=== PATIENT | female | born 1960 | race Caucasian/White ===

== ENCOUNTER 2017-01-16 13:26 | Emergency (ER) | payer SELFPAY ==
[~2017-01-16] VITALS: Ht 165.1 cm; Wt 57.2 kg
[2017-01-16 15:48] LABS: EOSINOPHIL (%) 1.3 % (0-5); EOSINOPHIL COUNT 0.1 K/uL (0-0.3); HEMATOCRIT 41.4 % (36.0-46.0); IMMATURE GRANULOCYTE (%) 0.4 % (0.0-0.7); LYMPHOCYTE COUNT 1.9 K/uL (1.0-2.8); MCH 31.5 PG (29.0-34.0); MCHC 33.6 G/DL (30.0-36.0); MCV 93.9 FL (83-99); MEAN PLAT.VOLUME 10.4 uM^3 (9.5-12.4); MONOCYTE (%) 7.2 % (3-12); MONOCYTE COUNT 0.4 K/uL (0-0.8); NEUTROPHIL (%) 55.2 % (45-76); PLATELET COUNT 194 K/uL (156-360); RBC DIS.WIDTH-CV 12.2 % (11.8-14.6); RBC DIS.WIDTH-SD 42.7 % (39-53); RED BLOOD COUNT 4.41 M/uL (3.80-5.20); WHITE BLOOD COUNT 5.4 K/uL (4.1-10.2)
[2017-01-16 15:56] LABS: CHLORIDE 106 mEq/L (99-109); POTASSIUM 4.4 mEq/L (3.7-5.4); SODIUM 139 mEq/L (136-147)
[2017-01-16 15:57] LABS: ADD MIUA? YES; BILIRUBIN NEGATIVE; BLOOD MODERATE; COLOR STRAW ((YELLOW)); GLUCOSE (STRIP) NEGATIVE; KETONES NEGATIVE; LEUKOCYTES TRACE; NITRITE NEGATIVE; PROTEIN (STRIP) NEGATIVE; SPECIFIC GRAVITY 1.004 (1.000-1.030); UROBILINOGEN 0.2 MG/DL (0.2-1.0)
[2017-01-16 15:59] LABS: GLUCOSE 102 mg/dL (70-99)
[2017-01-16 16:00] LABS: ANION GAP 8 MEQ/L (2-14)
[2017-01-16 16:01] LABS: TOTAL BILIRUBIN 0.4 mg/dL (0.0-1.0)
[2017-01-16 16:02] LABS: ALKALINE PHOSPHATASE 101 IU/L (3-129); GFR ESTIMATE (CALCULATED) > 59 mL/min/
[2017-01-16 16:02] LABS: BACTERIA NONE SEEN /HPF; EPITHELIAL CELLS RARE /HPF; MUCUS TRACE /LPF; WHITE BLOOD CELLS 0-5 /HPF (0-5)
[2017-01-16 16:03] LABS: UREA NITROGEN (BUN) 10 mg/dL (9-23)
[2017-01-16 16:06] LABS: LIPASE 184 U/L (1.0-51.0)
[2017-01-16] MEDS ORDERED: MOTRIN600 MG PO (16:39)
[2017-01-16 16:59] VITALS: BP 168/98
== END 2017-01-16 17:04 | disposition home or self-care (01) ==
LOC: EME 13:26
PROVIDERS: Physician Assistant
DX: R10.32 Left lower quadrant pain (principal); N23 Unspecified renal colic; I10 Essential (primary) hypertension; F17.200 Nicotine dependence, unspecified, uncomplicated
CPT/HCPCS: 80053; 81003; 83690; 85025; 99281; 99283